=== PATIENT | female | born 2000 | race Caucasian/White ===

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

== ENCOUNTER 2022-08-06 10:38 | Emergency (ER) | payer OTHER ==
[~2022-08-06] VITALS: Ht 157.5 cm; Wt 113.4 kg
== END 2022-08-06 14:44 | disposition home or self-care (01) ==
LOC: ER 10:38 → EDBD 10:41 → ER 14:44
DX: F41.9 Anxiety disorder, unspecified (principal)